=== PATIENT | male | born 1970 | race Caucasian/White ===

== ENCOUNTER 2023-04-07 08:54 | Outpatient (CLI) | payer OTHER, SELFPAY | END 2023-04-07 08:55 | disposition home or self-care (01) | PROVIDERS: PCP Emergency Medicine; Visit Provider Emergency Medicine | DX: Z00.00 Encounter for general adult medical examination without abnormal findings (principal); Z12.5 Encounter for screening for malignant neoplasm of prostate; Z13.1 Encounter for screening for diabetes mellitus; Z13.6 Encounter for screening for cardiovascular disorders | CPT/HCPCS: 80061; 82947; 84153 ==

== ENCOUNTER 2024-04-09 08:37 | Outpatient (CLI) | payer OTHER, SELFPAY | END 2024-04-09 08:38 | disposition home or self-care (01) | PROVIDERS: PCP Emergency Medicine; Visit Provider Family Medicine | DX: M16.12 Unilateral primary osteoarthritis, left hip (principal); R53.83 Other fatigue; Z12.5 Encounter for screening for malignant neoplasm of prostate | CPT/HCPCS: 80048; 84403; G0103 ==